=== PATIENT | female | born 1945 | race Caucasian/White ===

== ENCOUNTER 2021-10-16 23:17 | Emergency (ER) | payer MEDICARE, SELFPAY ==
[2021-10-16 23:40] VITALS: BP 141/67; PULSE 90; RESP 20; TEMP 36.7; O2SAT 95; BMI 34.9
[2021-10-17 01:15] LABS: D Dimer High Sensitivity 200 NG/ML
[2021-10-17 01:29] VITALS: BP 136/61; PULSE 84; RESP 16; TEMP 36.7; O2SAT 94
[2021-10-17 02:41] LABS: Basophils Percent Auto 0.7 % (0-2); Eosinophils Absolute Auto 0.4 X10*3/uL (0.0-0.4); Eosinophils Percent Auto 5.8 % (0-4); Hematocrit 31.1 % (37.0-47.0); Hemoglobin 10.4 g/dl (12.0-16.0); Imm Gran Abs Auto 0.02 X10*3/uL (0.00-0.03); Imm Gran Pct Auto 0.3 % (0.0-0.4); Lymphocytes Absolute Auto 1.7 X10*3/uL (1.2-4.9); MANUAL DIFF FLAG NO; Mean Corpuscular HGB Conc 33.4 g/dl (31.0-35.0); Mean Corpuscular Hemoglobin 28.8 pg (27.0-33.0); Mean Corpuscular Volume 86.1 fL (80.0-98.0); Mean Platelet Volume 9.6 fL (9.4-12.3); Monocytes Absolute Auto 0.5 X10*3/uL (0.1-1.2); Monocytes Percent Auto 8.1 % (2-11); Neutrophils Absolute Auto 3.5 x10*3/uL (2.0-8.3); Neutrophils Percent Auto 57.1 % (45-73); Platelet Count 274 X10*3/uL (160-400); Red Blood Count 3.61 X10*6/uL (4.20-5.50); Red Cell Distribution Width 14.6 % (11.0-16.0); White Blood Count 6.1 X10*3/uL (4.8-10.8)
[2021-10-17 02:58] LABS: Anion Gap 19 (12-20); Blood Urea Nitrogen 20 mg/dL (9-16); Calcium 9.2 mg/dL (8.4-10.2); Carbon Dioxide 24 mmol/L (22-29); Chloride 101 mmol/L (96-108); Creatinine Clr Calc Pharmacy 55.6; Estimated Glomerular Filt Rate > 60; Glucose Random 106 mg/dL (60-115); Potassium 3.3 mmol/L (3.3-5.1); Sodium 141 mmol/L (135-145)
[2021-10-17 03:04] LABS: B Type Natriuretic Peptide 12 pg/mL (<100)
--- NOTE | 2021-10-17 04:01 | ED.GENADULT ---
HPI - General Adult General Chief complaint: Extremity Injury, Lower Stated complaint: pain/swelling in legs, arm pain (no injury) Time Seen by Provider: 10/17/21 00:11 Source: patient Mode of arrival: ambulatory History of Present Illness HPI narrative: 76-year-old female with history of diabetes and recently started on gabapentin for diabetic neuropathy but she reports that her leg pain got worse so she began titrating the dose down under the supervision of her primary care provider. In addition, patient states that she continued to have lower extremity discomfort and was started on Celebrex well having the diclofenac removed. She denies any fevers or chills, recent travel but states that she has had increasing lower extremity edema that does resolve at night while she is asleep but she states that it ?blows up during the day?. She otherwise denies any cigarette smoking, shortness of breath, fevers. Related Data Home Medications Medication Instructions Recorded Confirmed amlodipine 10 mg tablet 1 tab PO DAILY 10/16/21 10/16/21 celecoxib 200 mg capsule 1 cap PO DAILY 10/16/21 10/16/21 diclofenac sodium 50 mg 1 tab PO BID 10/16/21 10/16/21 tablet,delayed release gabapentin 100 mg capsule cap PO 10/16/21 irbesartan 300 1 tab PO DAILY 10/16/21 10/16/21 mg-hydrochlorothiazide 12.5 mg tablet levothyroxine 75 mcg tablet 1 tab PO DAILY 10/16/21 10/16/21 metformin 500 mg tablet 2 tab PO BID 10/16/21 10/16/21 omeprazole 20 mg capsule,delayed 1 cap PO DAILY 10/16/21 10/16/21 release pioglitazone 30 mg tablet 1 tab PO DAILY 10/16/21 10/16/21 simvastatin 10 mg tablet 1 tab PO DAILY 10/16/21 10/16/21 Allergies Allergy/AdvReac Type Severity Reaction Status Date / Time tramadol [TRAMADOL] Allergy Mild HIVES Unverified 03/05/20 19:20 latex AdvReac Rash Verified 10/16/21 23:27 FruitiVits Allergy Unknown Rash Uncoded 10/16/21 23:27 FRUITS Allergy Unknown UNKNOWN Uncoded 03/05/20 19:20 Review of Systems Review of Systems: Pertinent positives and negatives as stated in HPI 10 point review of systems otherwise negative. [facility] Past Medical History Source: nursing notes reviewed Social History Social History Advance Directives: No Physical Exam ED Vital Signs: Vital Signs - 24 hr 10/16/21 23:40 10/17/21 01:29 Temperature 98.0 F 98.1 F Pulse Rate 90 84 Respiratory Rate 20 16 Blood Pressure 141/67 H 136/61 Pulse Oximetry 95 94 BMI result Body Mass Index 34.9 VITAL SIGNS: Reviewed. GENERAL: Well developed, well nourished, in no acute distress. HEAD: Normocephalic/atraumatic EYES: PERRLA, EOMI EARS: Ext canals without abnormality OROPHARYNX: no oral lesions noted, posterior pharynx clear LUNGS: Normal breath sounds. No adventitious sounds or accessory muscle use. SpO2<95> CARDIOVASCULAR: Regular rate and rhythm without noted murmurs, no JVD bilateral lower extremity 1+ pitting edema ABDOMEN: Soft, non-tender, non-distended with bowel sounds. MUSCULOSKELETAL: No tenderness, deformities, or effusions noted on gross inspection. EXTREMITIES: No cyanosis, clubbing but bilateral 1+ pitting edema, no erythema or induration noted SKIN: Inspection of the skin reveals no rashes NEUROLOGIC: Alert and oriented x 4. Strength and sensation to light touch were grossly intact x 4. Course Course Course Narrative: 76-year-old female with history and clinical presentation consistent with suspected medication associated bilateral lower extremity edema as patient does not have clinical or history symptoms consistent with CHF or DVT. On review of all investigations there is no evidence that patient has a DVT or is fluid overloaded. All results were discussed with her at bedside and she was reassured that if she uses compression stockings and discusses this further with her primary care provider she may be able to be shifted over to a different medication to help reduce the lower leg edema. Medical Decision Making Lab Data Result diagrams: 10/17/21 02:35 10/17/21 02:35 Labs: Lab Results 10/17/21 10/17/21 10/17/21 Range/Units 01:00 02:35 02:35 WBC 6.1 (4.8-10.8) X10*3/uL RBC 3.61 L (4.20-5.50) X10*6/uL Hgb 10.4 L (12.0-16.0) g/dl Hct 31.1 L (37.0-47.0) % MCV 86.1 (80.0-98.0) fL MCH 28.8 (27.0-33.0) pg MCHC 33.4 (31.0-35.0) g/dl RDW 14.6 (11.0-16.0) % Plt Count 274 (160-400) X10*3/uL MPV 9.6 (9.4-12.3) fL Immature Gran % (Auto) 0.3 (0.0-0.4) % Neut % (Auto) 57.1 (45-73) % Lymph % (Auto) 28.0 (20-40) % [place] % (Auto) 8.1 (2-11) % Eos % (Auto) 5.8 H (0-4) % Baso % (Auto) 0.7 (0-2) % Lymph # (Auto) 1.7 (1.2-4.9) X10*3/uL [place] # (Auto) 0.5 (0.1-1.2) X10*3/uL Eos # (Auto) 0.4 (0.0-0.4) X10*3/uL Baso # (Auto) 0.0 (0.0-0.2) X10*3/uL Abs Immat Gran (auto) 0.02 (0.00-0.03) X10*3/uL Absolute Neuts (auto) 3.5 (2.0-8.3) x10*3/uL Absolute Nucleated RBC 0.000 (0.0-0.012) X10*3/uL Nucleated RBC % (auto) 0.0 (0.0-0.2) /100WBC D-Dimer High Sensitivty 200 NG/ML Sodium 141 (135-145) mmol/L Potassium 3.3 (3.3-5.1) mmol/L Chloride 101 (96-108) mmol/L Carbon Dioxide 24 (22-29) mmol/L Anion Gap 19 (12-20) BUN 20 H (9-16) mg/dL Creatinine 0.79 (0.5-1.4) mg/dL Estim Creat Clear Calc 55.6 Estimated GFR > 60 Random Glucose 106 (60-115) mg/dL Calcium 9.2 (8.4-10.2) mg/dL B-Natriuretic Peptide (<100) pg/mL 10/17/21 Range/Units 02:35 WBC (4.8-10.8) X10*3/uL RBC (4.20-5.50) X10*6/uL Hgb (12.0-16.0) g/dl Hct (37.0-47.0) % MCV (80.0-98.0) fL MCH (27.0-33.0) pg MCHC (31.0-35.0) g/dl RDW (11.0-16.0) % Plt Count (160-400) X10*3/uL MPV (9.4-12.3) fL Immature Gran % (Auto) (0.0-0.4) % Neut % (Auto) (45-73) % Lymph % (Auto) (20-40) % [place] % (Auto) (2-11) % Eos % (Auto) (0-4) % Baso % (Auto) (0-2) % Lymph # (Auto) (1.2-4.9) X10*3/uL [place] # (Auto) (0.1-1.2) X10*3/uL Eos # (Auto) (0.0-0.4) X10*3/uL Baso # (Auto) (0.0-0.2) X10*3/uL Abs Immat Gran (auto) (0.00-0.03) X10*3/uL Absolute Neuts (auto) (2.0-8.3) x10*3/uL Absolute Nucleated RBC (0.0-0.012) X10*3/uL Nucleated RBC % (auto) (0.0-0.2) /100WBC D-Dimer High Sensitivty NG/ML Sodium (135-145) mmol/L Potassium (3.3-5.1) mmol/L Chloride (96-108) mmol/L Carbon Dioxide (22-29) mmol/L Anion Gap (12-20) BUN (9-16) mg/dL Creatinine (0.5-1.4) mg/dL Estim Creat Clear Calc Estimated GFR Random Glucose (60-115) mg/dL Calcium (8.4-10.2) mg/dL B-Natriuretic Peptide 12 (<100) pg/mL Discharge Plan Discharge Clinical Impression: Bilateral leg edema Patient Disposition: Home, Self-Care Instructions: Leg Edema (ED) Additional Instructions: 1. Resume all home medications as prescribed. 2. Recommend that you begin using bilateral lower extremity compression devices, these are available in every [facility]. 3. Please follow-up with your primary care provider on Monday morning for re-evaluation further outpatient management. Return to the ER for worsening symptoms. Prescriptions: No Action celecoxib 200 mg capsule 1 cap PO DAILY 0RF metformin 500 mg tablet 2 tab PO BID 0RF simvastatin 10 mg tablet 1 tab PO DAILY 0RF levothyroxine 75 mcg tablet 1 tab PO DAILY 0RF amlodipine 10 mg tablet 1 tab PO DAILY 0RF irbesartan-hydrochlorothiazide 300-12.5 mg tablet 1 tab PO DAILY 0RF omeprazole 20 mg capsule,delayed release(DR/EC) 1 cap PO DAILY 0RF diclofenac sodium 50 mg tablet,delayed release (DR/EC) 1 tab PO BID 0RF gabapentin 100 mg capsule PO 0RF pioglitazone 30 mg tablet 1 tab PO DAILY 0RF Referrals: Ivana Leon MD [Primary Care Provider] -
== END 2021-10-17 04:17 | disposition home or self-care (01) ==
PROVIDERS: Emergency Provider Student in an Organized Health Care Education/Training Program; PCP Internal Medicine
DX: R60.0 Localized edema (principal); E11.40 Type 2 diabetes mellitus with diabetic neuropathy, unspecified
CPT/HCPCS: 36415; 80048; 83880; 85025; 85379; 99283

== ENCOUNTER 2022-06-13 00:26 | Emergency (ER) | payer MEDICARE, SELFPAY ==
--- NOTE | 2022-06-13 | ECG_ITS ---
Test Reason : cp Blood Pressure : / mmHG Vent. Rate : 118 BPM Atrial Rate : 118 BPM P-R Int : 154 ms QRS Dur : 074 ms QT Int : 324 ms P-R-T Axes : 052 005 009 degrees QTc Int : 454 ms Sinus tachycardia Possible Inferior infarct , age undetermined Abnormal ECG No previous ECGs available Referred By: Briana Pereira Electronically Signed By:LYDIA HUERTA MD
[2022-06-13 00:29] VITALS: BP 161/86; PULSE 110; RESP 24; TEMP 36.3; O2SAT 100; BMI 33.3
--- NOTE | 2022-06-13 00:47 | ECG_ITS ---
Test Reason : DYSPNEA Blood Pressure : / mmHG Vent. Rate : 092 BPM Atrial Rate : 092 BPM P-R Int : 156 ms QRS Dur : 086 ms QT Int : 378 ms P-R-T Axes : 041 001 005 degrees QTc Int : 467 ms Normal sinus rhythm Cannot rule out Inferior infarct , age undetermined Abnormal ECG No previous ECGs available Referred By: Briana Pereira Electronically Signed By:Mack Peng
--- NOTE | 2022-06-13 00:49 | ED.GENADULT ---
HPI - General Adult General Chief complaint: Dyspnea Stated complaint: SOB Time Seen by Provider: 06/13/22 00:38 Source: patient Mode of arrival: ambulatory Limitations: no limitations History of Present Illness HPI narrative: Patient comes to the emergency room complaining of reflux. Patient states that she takes omeprazole at home every day. Tonight, approximately 50 minutes ago, patient woke up from her sleep complaining of severe burning sensation radiating from her abdomen up her esophagus up to the jaw. Patient denies any vomiting or diarrhea. Patient states that she has some chest pressure. Patient denies abdominal pain. Patient states that she has been coughing for about an hour, secondary to having the burning/sour sensation in her mouth Related Data Home Medications Medication Instructions Recorded Confirmed amlodipine 10 mg tablet 1 tab PO DAILY 10/16/21 10/16/21 celecoxib 200 mg capsule 1 cap PO DAILY 10/16/21 10/16/21 diclofenac sodium 50 mg 1 tab PO BID 10/16/21 10/16/21 tablet,delayed release gabapentin 100 mg capsule cap PO 10/16/21 irbesartan 300 1 tab PO DAILY 10/16/21 10/16/21 mg-hydrochlorothiazide 12.5 mg tablet levothyroxine 75 mcg tablet 1 tab PO DAILY 10/16/21 10/16/21 metformin 500 mg tablet 2 tab PO BID 10/16/21 10/16/21 omeprazole 20 mg capsule,delayed 1 cap PO DAILY 10/16/21 10/16/21 release pioglitazone 30 mg tablet 1 tab PO DAILY 10/16/21 10/16/21 simvastatin 10 mg tablet 1 tab PO DAILY 10/16/21 10/16/21 Allergies Allergy/AdvReac Type Severity Reaction Status Date / Time tramadol [TRAMADOL] Allergy Mild HIVES Verified 06/13/22 00:33 latex AdvReac Rash Verified 06/13/22 00:33 FruitiVits Allergy Unknown Rash Uncoded 10/16/21 23:27 FRUITS Allergy Unknown UNKNOWN Uncoded 03/05/20 19:20 Review of Systems Review of Systems: Constitutional : No Weight loss, No Fever, No Chills, No Night Sweats, No Fatigue, No Malaise ENT/Mouth : No Hearing loss, No Ear Pain, No Nasal Congestion, No Sinus Pain, No Hoarseness, No sore throat, No Rhinorrhea, No Swallowing Difficulty Eyes: No Eye Pain, No Swelling, No Redness, No Foreign Body, No Discharge, No Vision Changes Cardiovascular : Complaining of chest pressure, esophageal burning sensation, mild SOB, No Dyspnea on Exertion, No Orthopnea, No Edema, No Palpitations Respiratory : Complaining of cough for 1 hour, No Sputum, No Wheezing, No Smoke Exposure, No Dyspnea Gastrointestinal : No Nausea, No Vomiting, No Diarrhea, No Constipation, No abdominal Pain, No Hematochezia, No Melena Genitourinary : no irregular bleeding, No Dysuria, No Urinary Frequency, No Hematuria, No Urinary Incontinence, No Urgency, No Flank Pain, No Urinary Flow Changes, No Hesitancy Musculoskeletal : No joint pain, No Myalgias, No Joint Swelling Skin : No Skin Lesions, No rash Neuro : No Weakness, No Numbness, No Paresthesias, No Loss of Consciousness, No Dizziness, No Headache Psych : No Anxiety/Panic, No Depression, No SI/HI/AH/VH, No Social Issues, Heme/Lymph: No Bruising, No Bleeding,No Lymphadenopathy Endocrine : No Polyuria, No Polydipsia, No Temperature Intolerance [facility] Past Medical History Medical History Diabetes GERD (gastroesophageal reflux disease) Hypertension Hypothyroidism Social History Social History Alcohol intake: current Alcohol intake frequency: holidays/special occasions only Smoked in Last 30 Days: No Use of substances other than those prescribed or required for medical reasons: No Advance Directives: No Advance Directives Information Provided: Yes Physical Exam ED Vital Signs: Vital Signs - 24 hr 06/13/22 00:29 06/13/22 03:11 Temperature 97.4 F 98 F Pulse Rate 110 H 99 Respiratory Rate 24 H 15 Blood Pressure 161/86 H 130/68 Pulse Oximetry 100 94 Oxygen Delivery Method Room Air Room Air BMI result Body Mass Index 33.3 Const Other: Appearance: Alert. Oriented X3. No acute distress. Eyes: Pupils equal, round and reactive to light. ENT: Pharynx normal. Neck: Normal inspection. Neck supple. No lymph nodes noted. No crepitus CVS: Normal heart rate and rhythm. Pulses normal. Normal S1 and S2 Respiratory: No respiratory distress. Breath sounds normal. No Wheezing. No rales Abdomen: Soft and nontender. No rigidity. No distention. Skin: Skin warm and dry. Normal skin color. Normal skin turgor. Extremities: No lower extremity edema. No Lacerations. No Rash Neuro: Oriented X 3. No motor deficit. No sensory deficit. Moving all extremities. No slurred speech. CN 2 through 12 grossly intact Psych: calm, cooperative, very anxious Course Course Course Narrative: Patient's initial EKG does not show any acute changes. Patient is very anxious. Of patient's labs are pending Patient was given aspirin, famotidine, viscous lidocaine, Maalox, and Ativan Patient will likely need to have her troponin is repeated in 3 hours from Patient's magnesium is 1.3. Patient will be receiving IV Mag. Also, patient's level fully repeated along with the 2nd troponin at 04:00 After the above-mentioned treatment, labs were repeated, troponin remains negative, magnesium improved normal levels. Patient is asymptomatic. It is unlikely the patient had a cardiac event, most likely a combination of GERD and anxiety. Medications Administered Discontinued Medications Generic Name Dose Route Start Last Admin Trade Name Freq PRN Reason Stop Dose Admin Al Hydroxide/Mg Hydroxide 30 ml 06/13/22 00:46 06/13/22 01:16 Magnesium Hydrox/Alum Hydrox 30 Ml Oral.Susp PO 06/13/22 00:47 30 ml ONCE ONE Administration Aspirin 325 mg 06/13/22 00:46 06/13/22 01:16 Aspirin Enteric Coated 325 Mg Tablet.Dr PO 06/13/22 00:47 325 mg ONCE ONE Administration Famotidine 20 mg 06/13/22 00:46 06/13/22 01:16 Famotidine/Pf 20 Mg/2 Ml Vial IVPUSH 06/13/22 00:47 20 mg ONCE ONE Administration Magnesium Sulfate 2 gm in 50 mls @ 25 mls/hr 06/13/22 02:24 06/13/22 02:38 Magnesium Sulfate/H2o IV 06/13/22 04:23 25 mls/hr ONCE ONE Administration Lidocaine HCl 15 ml 06/13/22 00:46 06/13/22 01:16 Lidocaine Hcl Viscous 2 % 15 Ml Solution MUCOUS MEM 06/13/22 00:47 15 ml ONCE ONE Administration Lorazepam 1 mg 06/13/22 00:46 06/13/22 01:16 Lorazepam 2 Mg/Ml Vial IVPUSH 06/13/22 00:47 1 mg ONCE ONE Administration Medical Decision Making Differential Diagnosis Differential Diagnoses: The differential diagnosis associated with the presentation includes Lab Data MDM Lab Attestation statement: I reviewed the patient's lab results. Result Diagrams: 06/13/22 01:06 06/13/22 01:06 Labs: Lab Results 06/13/22 06/13/22 06/13/22 Range/Units 01:06 01:06 01:06 WBC 7.0 (4.8-10.8) X10*3/uL RBC 4.13 L (4.20-5.50) X10*6/uL Hgb 11.6 L (12.0-16.0) g/dl Hct 35.9 L (37.0-47.0) % MCV 86.9 (80.0-98.0) fL MCH 28.1 (27.0-33.0) pg MCHC 32.3 (31.0-35.0) g/dl RDW 13.3 (11.0-16.0) % Plt Count 216 (160-400) X10*3/uL MPV 10.0 (9.4-12.3) fL Immature Gran % (Auto) 0.4 (0.0-0.4) % Neut % (Auto) 66.0 (45-73) % Lymph % (Auto) 22.8 (20-40) % [place] % (Auto) 6.3 (2-11) % Eos % (Auto) 3.6 (0-4) % Baso % (Auto) 0.9 (0-2) % Lymph # (Auto) 1.6 (1.2-4.9) X10*3/uL Payne # (Auto) 0.4 (0.1-1.2) X10*3/uL Eos # (Auto) 0.3 (0.0-0.4) X10*3/uL Baso # (Auto) 0.1 (0.0-0.2) X10*3/uL Abs Immat Gran (auto) 0.03 (0.00-0.03) X10*3/uL Absolute Neuts (auto) 4.6 (2.0-8.3) x10*3/uL Absolute Nucleated RBC 0.000 (0.0-0.012) X10*3/uL Nucleated RBC % (auto) 0.0 (0.0-0.2) /100WBC PT (10.0-13.1) SEC INR (0.9-1.1) Sodium 143 (135-145) mmol/L Potassium 3.6 (3.3-5.1) mmol/L Chloride 99 (96-108) mmol/L Carbon Dioxide 29 (22-29) mmol/L Anion Gap 19 (12-20) BUN 28 H (9-16) mg/dL Creatinine 1.28 (0.5-1.4) mg/dL Estim Creat Clear Calc 32.9 Estimated GFR 41 Random Glucose 156 H (60-115) mg/dL Calcium 10.0 D (8.4-10.2) mg/dL Magnesium 1.3 L* (1.6-2.6) mg/dL Total Bilirubin 0.4 (0.0-1.0) mg/dL Direct Bilirubin < 0.2 (0.0-0.5) mg/dL AST 13 (5-31) U/L ALT 15 (0-31) U/L Alkaline Phosphatase 73 (39-117) U/L Troponin I High Sens < 3.5 (<3.5-17.0) ng/L B-Natriuretic Peptide (<100) pg/mL Total Protein 7.3 (6.5-8.0) g/dL Albumin 4.8 (3.5-5.0) g/dL Lipase 26 (8-78) U/L COVID-19 ([facility]) (Negative) COVID-19 Clin Com 06/13/22 06/13/22 06/13/22 Range/Units 01:06 01:06 01:06 WBC (4.8-10.8) X10*3/uL RBC (4.20-5.50) X10*6/uL Hgb (12.0-16.0) g/dl Hct (37.0-47.0) % MCV (80.0-98.0) fL MCH (27.0-33.0) pg MCHC (31.0-35.0) g/dl RDW (11.0-16.0) % Plt Count (160-400) X10*3/uL MPV (9.4-12.3) fL Immature Gran % (Auto) (0.0-0.4) % Neut % (Auto) (45-73) % Lymph % (Auto) (20-40) % [place] % (Auto) (2-11) % Eos % (Auto) (0-4) % Baso % (Auto) (0-2) % Lymph # (Auto) (1.2-4.9) X10*3/uL [place] # (Auto) (0.1-1.2) X10*3/uL Eos # (Auto) (0.0-0.4) X10*3/uL Baso # (Auto) (0.0-0.2) X10*3/uL Abs Immat Gran (auto) (0.00-0.03) X10*3/uL Absolute Neuts (auto) (2.0-8.3) x10*3/uL Absolute Nucleated RBC (0.0-0.012) X10*3/uL Nucleated RBC % (auto) (0.0-0.2) /100WBC PT 10.6 (10.0-13.1) SEC INR 0.9 (0.9-1.1) Sodium (135-145) mmol/L Potassium (3.3-5.1) mmol/L Chloride (96-108) mmol/L Carbon Dioxide (22-29) mmol/L Anion Gap (12-20) BUN (9-16) mg/dL Creatinine (0.5-1.4) mg/dL Estim Creat Clear Calc Estimated GFR Random Glucose (60-115) mg/dL Calcium (8.4-10.2) mg/dL Magnesium (1.6-2.6) mg/dL Total Bilirubin (0.0-1.0) mg/dL Direct Bilirubin (0.0-0.5) mg/dL AST (5-31) U/L ALT (0-31) U/L Alkaline Phosphatase (39-117) U/L Troponin I High Sens (<3.5-17.0) ng/L B-Natriuretic Peptide < 10 (<100) pg/mL Total Protein (6.5-8.0) g/dL Albumin (3.5-5.0) g/dL Lipase (8-78) U/L COVID-19 ([facility]) Negative (Negative) COVID-19 Clin Com See Note 06/13/22 06/13/22 Range/Units 03:52 03:52 WBC (4.8-10.8) X10*3/uL RBC (4.20-5.50) X10*6/uL Hgb (12.0-16.0) g/dl Hct (37.0-47.0) % MCV (80.0-98.0) fL MCH (27.0-33.0) pg MCHC (31.0-35.0) g/dl RDW (11.0-16.0) % Plt Count (160-400) X10*3/uL MPV (9.4-12.3) fL Immature Gran % (Auto) (0.0-0.4) % Neut % (Auto) (45-73) % Lymph % (Auto) (20-40) % Payne % (Auto) (2-11) % Eos % (Auto) (0-4) % Baso % (Auto) (0-2) % Lymph # (Auto) (1.2-4.9) X10*3/uL Payne # (Auto) (0.1-1.2) X10*3/uL Eos # (Auto) (0.0-0.4) X10*3/uL Baso # (Auto) (0.0-0.2) X10*3/uL Abs Immat Gran (auto) (0.00-0.03) X10*3/uL Absolute Neuts (auto) (2.0-8.3) x10*3/uL Absolute Nucleated RBC (0.0-0.012) X10*3/uL Nucleated RBC % (auto) (0.0-0.2) /100WBC PT (10.0-13.1) SEC INR (0.9-1.1) Sodium (135-145) mmol/L Potassium (3.3-5.1) mmol/L Chloride (96-108) mmol/L Carbon Dioxide (22-29) mmol/L Anion Gap (12-20) BUN (9-16) mg/dL Creatinine (0.5-1.4) mg/dL Estim Creat Clear Calc Estimated GFR Random Glucose (60-115) mg/dL Calcium (8.4-10.2) mg/dL Magnesium 2.1 (1.6-2.6) mg/dL Total Bilirubin (0.0-1.0) mg/dL Direct Bilirubin (0.0-0.5) mg/dL AST (5-31) U/L ALT (0-31) U/L Alkaline Phosphatase (39-117) U/L Troponin I High Sens < 3.5 (<3.5-17.0) ng/L B-Natriuretic Peptide (<100) pg/mL Total Protein (6.5-8.0) g/dL Albumin (3.5-5.0) g/dL Lipase (8-78) U/L COVID-19 ([facility]) (Negative) COVID-19 Clin Com Radiology Impression Discussion of test interpretation with radiology: I have reviewed the radiologist's reading. (FINDINGS: There is elevation of the left hemidiaphragm with minimal adjacent basilar atelectasis. No additional consolidation is seen bilaterally. No evidence of pneumothorax, pleural effusion, or pulmonary edema. Cardiac size is within normal limits. Calcification is present at the aortic arch. No) Discharge Plan Discharge Clinical Impression: Chest pain due to GERD, Anxiety Patient Disposition: Home, Self-Care Instructions: Diet for Stomach Ulcers and Gastritis (ED), Gastroesophageal Reflux Disease (ED), Anxiety (ED), Chest Pain (ED) Additional Instructions: Please follow-up with your primary care physician tomorrow. If you have any worsening or new symptoms, please return to the emergency room or call 911 Prescriptions: No Action celecoxib 200 mg capsule 1 cap PO DAILY metformin 500 mg tablet 2 tab PO BID simvastatin 10 mg tablet 1 tab PO DAILY levothyroxine 75 mcg tablet 1 tab PO DAILY amlodipine 10 mg tablet 1 tab PO DAILY irbesartan-hydrochlorothiazide 300-12.5 mg tablet 1 tab PO DAILY omeprazole 20 mg capsule,delayed release(DR/EC) 1 cap PO DAILY diclofenac sodium 50 mg tablet,delayed release (DR/EC) 1 tab PO BID gabapentin 100 mg capsule PO pioglitazone 30 mg tablet 1 tab PO DAILY
--- NOTE | 2022-06-13 01:06 | PC.NURSE ---
Pt alert and oriented. Pt states sob with persistent cough started at around midnight. Pt ambulates safely and independently. significant other at bedside. IV access established on L hand 22g.
[2022-06-13 01:51] LABS: Basophils Absolute Auto 0.1 X10*3/uL (0.0-0.2); Basophils Percent Auto 0.9 % (0-2); Eosinophils Absolute Auto 0.3 X10*3/uL (0.0-0.4); Eosinophils Percent Auto 3.6 % (0-4); Hematocrit 35.9 % (37.0-47.0); Hemoglobin 11.6 g/dl (12.0-16.0); Imm Gran Abs Auto 0.03 X10*3/uL (0.00-0.03); Imm Gran Pct Auto 0.4 % (0.0-0.4); Lymphocytes Absolute Auto 1.6 X10*3/uL (1.2-4.9); Lymphocytes Percent Auto 22.8 % (20-40); MANUAL DIFF FLAG NO; Mean Corpuscular HGB Conc 32.3 g/dl (31.0-35.0); Mean Corpuscular Hemoglobin 28.1 pg (27.0-33.0); Mean Corpuscular Volume 86.9 fL (80.0-98.0); Monocytes Absolute Auto 0.4 X10*3/uL (0.1-1.2); Monocytes Percent Auto 6.3 % (2-11); Neutrophils Absolute Auto 4.6 x10*3/uL (2.0-8.3); Platelet Count 216 X10*3/uL (160-400); Red Blood Count 4.13 X10*6/uL (4.20-5.50); Red Cell Distribution Width 13.3 % (11.0-16.0)
[2022-06-13 02:01] LABS: INTERNATIONAL NORM RATIO 0.9 (0.9-1.1); Prothrombin Time 10.6 SEC (10.0-13.1)
[2022-06-13 02:12] LABS: COVID-19 Test Negative (Negative); IDNOW Serial# 9DB6401D
[2022-06-13 02:15] LABS: Troponin-I High Sensitivity < 3.5 ng/L (<3.5-17.0)
[2022-06-13 02:17] LABS: Alanine Aminotransferase 15 U/L (0-31); Albumin Level 4.8 g/dL (3.5-5.0); Alkaline Phosphatase 73 U/L (39-117); Anion Gap 19 (12-20); Aspartate Amino Transferase 13 U/L (5-31); Bilirubin Direct < 0.2 mg/dL (0.0-0.5); Bilirubin Total 0.4 mg/dL (0.0-1.0); Blood Urea Nitrogen 28 mg/dL (9-16); Carbon Dioxide 29 mmol/L (22-29); Chloride 99 mmol/L (96-108); Creatinine Clr Calc Pharmacy 32.9; Estimated Glomerular Filt Rate 41; Glucose Random 156 mg/dL (60-115); Lipase 26 U/L (8-78); Magnesium 1.3 mg/dL (1.6-2.6); Potassium 3.6 mmol/L (3.3-5.1); Sodium 143 mmol/L (135-145); Total Protein 7.3 g/dL (6.5-8.0)
[2022-06-13 02:25] LABS: B Type Natriuretic Peptide < 10 pg/mL (<100)
[2022-06-13 03:11] VITALS: BP 130/68; PULSE 99; RESP 15; TEMP 36.6; O2SAT 94
[2022-06-13 04:13] LABS: Magnesium 2.1 mg/dL (1.6-2.6)
[2022-06-13 04:24] LABS: Troponin-I High Sensitivity < 3.5 ng/L (<3.5-17.0)
== END 2022-06-13 05:02 | disposition home or self-care (01) ==
PROVIDERS: Emergency Provider Emergency Medicine; PCP Internal Medicine
DX: R07.89 Other chest pain (principal); K21.9 Gastro-esophageal reflux disease without esophagitis; F41.9 Anxiety disorder, unspecified; Z20.822 Contact with and (suspected) exposure to COVID-19; R06.02 Shortness of breath; E11.9 Type 2 diabetes mellitus without complications; I10 Essential (primary) hypertension; Z79.84 Long term (current) use of oral hypoglycemic drugs; Z79.899 Other long term (current) drug therapy
CPT/HCPCS: 36415; 71045; 80048; 80076; 83690; 83735; 83880; 84484; 85025; 85610; 87635; 93005; 96365; 96366; 96375; 99284; 99285; J2060; J3475